=== PATIENT | male | born 1995 | race Caucasian/White ===

== ENCOUNTER 2018-02-12 16:51 | Emergency (ER) | payer BC, OTHER ==
[~2018-02-12] VITALS: Ht 172.7 cm; Wt 73.4 kg
[2018-02-12 16:54] VITALS: TEMP 37.1; Ht 172.7 cm; Wt 73.4 kg
--- NOTE | 2018-02-12 18:06 | DIAGNOSTIC IMAGING REPORT ---
PA CHEST WITH LEFT-SIDED RIB SERIES CLINICAL HISTORY: Fall. Left anterior chest wall injury. FINDINGS: A PA chest radiograph with 4 additional views from a left-sided rib series is obtained.No prior studies are available for comparison at the time of dictation. The cardiomediastinal silhouette is unremarkable. The lungs and pleural spaces are clear. No pneumothorax is seen. There is no radiographic evidence of acute/distracted left-sided rib fractures seen on the rib series. The remainder of the bony thorax is grossly intact. IMPRESSION: 1. The lungs are clear 2. There is no radiographic evidence of acute/distracted left-sided rib fracture as clinically queried. Electronically signed by: Shayan Araujo M.D. 02/12/2018 6:05 PM Dictated Date/Time: 02/12/2018 6:03 PM
--- NOTE | 2018-02-12 18:26 | EMERGENCY ROOM VISIT NOTE ---
ED Visit Note First contact with patient: 17:04 CHIEF COMPLAINT: Left rib injury HISTORY OF PRESENT ILLNESS: This 22-year-old male presents to ER with chief complaint of left anterior rib injury. The patient states yesterday he was dancing on a table and fell off striking his left anterior ribs on the edge of a wooden sofa frame. He states today he has continued pain in this area as well as pain with inspiration. The patient [facility] but he is not confident in their diagnosis. He states it took them a long time after they did the x-ray to come back and tell him he has a rib fracture. The patient has ADHD and does not like to take narcotics. They did give him a prescription for oxycodone which he did not get filled. He has been taken ibuprofen with some relief. The patient wants a second opinion. REVIEW OF SYSTEMS: 6 system review was performed and was negative unless stated otherwise in history of present illness. PMH: The patient is healthy; ADHD SOCIAL HISTORY: Patient is a [employer] student. The patient denies tobacco use but admits to occasional alcohol use. PHYSICAL EXAM: Vital Signs: Were reviewed reviewed Nurse's notes. GENERAL: 22- year-old white male appears in no acute distress. MENTAL Status: Patient is alert and oriented 3. The patient is very hyper. LUNGS: Clear to auscultation and breath sounds equal, no wheezes, rales, or rhonchi. HEART: Heart sounds are regular without murmurs, ectopy, gallop, or rub. CHEST WALL: No gross bony deformity noted. No erythema or edema noted. The patient is tender to palpation over the left anterior lower chest wall otherwise nontender. EMERGENCY DEPARTMENT COURSE: The patient was evaluated. The patient was offered pain medication but declined. X-ray of the left ribs is ordered interpreted by the radiologist and myself. DIAGNOSTICS:PA CHEST WITH LEFT-SIDED RIB SERIES CLINICAL HISTORY: Fall. Left anterior chest wall injury. FINDINGS: A PA chest radiograph with 4 additional views from a left-sided rib series is obtained.No prior studies are available for comparison at the time of dictation. The cardiomediastinal silhouette is unremarkable. The lungs and pleural spaces are clear. No pneumothorax is seen. There is no radiographic evidence of acute/distracted left-sided rib fractures seen on the rib series. The remainder of the bony thorax is grossly intact. IMPRESSION: 1. The lungs are clear 2. There is no radiographic evidence of acute/distracted left-sided rib fracture as clinically queried. Electronically signed by: Shayan Araujo M.D. 02/12/2018 6:05 PM Dictated Date/Time: 02/12/2018 6:03 PM The patient was informed of the findings and discharged home in stable condition. DIAGNOSIS: Left rib contusion TREATMENT and DISCHARGE INSTRUCTIONS: Ice intermittently to the affected area over the next 24 hours. Ibuprofen 600 mg every 6 hours with food for pain. If symptoms persist or worsen, follow-up with [facility]. Current/Historical Medications No Active Prescriptions or Reported Meds Allergies Coded Allergies: No Known Allergies (Unverified , 02/12/18) Vital Signs Date Time Temp Pulse Resp B/P (MAP) Pulse Ox O2 Delivery O2 Flow Rate FiO2 02/12/18 16:54 37.1 104 18 150/72 99 Room Air Departure Information Prescriptions No Active Prescriptions or Reported Meds Referrals No Doctor, Assigned (PCP) [facility] Instructions [facility]
[2018-02-12 18:43] VITALS: BP 141/82; PULSE 71; O2SAT 98
== END 2018-02-12 18:45 | disposition home or self-care (01) ==
LOC: C.EDB 16:52 → C.EDD 18:45
DX: S20.212A Contusion of left front wall of thorax, initial encounter (principal); W08.XXXA Fall from other furniture, initial encounter; Y92.9 Unspecified place or not applicable; Y93.41 Activity, dancing; F90.9 Attention-deficit hyperactivity disorder, unspecified type